=== PATIENT | female | born 1965 | race Caucasian/White ===

== ENCOUNTER 2017-04-07 05:00 | Inpatient (IN) | payer OTHER ==
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
--- NOTE | ~2017-04-07 | PN ---
Unit #: [id number] #: [id number] Patient: PRIYA YEUNG [id number] [facility] [address] [place] [address] [id number] I MR#: [id number] NAME: PRIYA YEUNG. ROOM: P123 Age: 51 Sex: F Admission Date: 04/07/2017 : 1965 Attending Physician: Cornelius Hinds M.D. Admitting Physician: Cornelius Hinds M.D. Primary Care Physician: Generic Doctor Not In System [facility] PROGRESS NOTES DATE 04/13/2017 DISCUSSION Priya continues to remain on one-to-one precautions due to aggression toward other patients including a specific peer. She is compliant with medications and shows no sedation or other adverse side effects. There is no evidence of EPS. She is alert and oriented to person and location. Memory and concentration are fair and she continues to scratch herself on a frequent basis and requires one-to-one to prevent harm to self and others. ASSESSMENT schizophrenia paranoid type. PLAN Continue current treatment plan and one-to-one precautions. Dictated by... Sofy Young/robert TD: 04/22/2017 22:20 JOB #: [id number] [facility] PROGRESS NOTES Page 1 of 1 X Cornelius Hinds MD PROGRESS NOTE
--- NOTE | ~2017-04-07 | PN ---
Unit #: [id number] #: [id number] Patient: CURRY YEUNG [id number] [facility] [address] [place] [address] [id number] Yulia MR#: [id number] NAME: CURRY YEUNG. ROOM: P123 Age: 51 Sex: F Admission Date: 04/07/2017 : 1965 Attending Physician: Cornelius Hinds M.D. Admitting Physician: Cornelius Hinds M.D. Primary Care Physician: Devorah Doctor Not In System [facility] PROGRESS NOTES DATE 04/20/2017 DISCUSSION Upon today's assessment, I spoke with nursing staff regarding her discontinuation of the one-to-one yesterday and the report that her behaviors have been good and she has no issues at this time and has been pleasant with staff. Upon speaking to the patient, she reports that she has been feeling okay and she reports that she is off the one-to-one and she is happy with that but has had complaints of a headache for most of the day. She does still endorse auditory hallucinations that are not command in nature but are softer at this time and more tolerable. Mental status exam at this time reveals a casually dressed woman who is mildly disheveled, lying in bed with fair personal hygiene. She is oriented to person, place, and situation. Her mood is constricted at this time with a congruent affect. Her speech is relevant, coherent with a normal rate and tone. Her thought processes appear logical and goal directed. She denies any suicidal or homicidal ideation at this time. She denies visual hallucinations but endorses auditory hallucinations that are not command in nature. Memory, intellectual functioning appear grossly intact. Judgment and insight are limited. Sleep and appetite she reports as adequate and denies any side effects to the medications. We will continue to monitor Ms. Powers q.15 minutes for safety and provide comfort medications as needed. Dictated by... Yumi Lynn APRN for Cornelius Hinds M.D. GABRIELLE/jessica TD: 04/21/2017 15:53 JOB #: [id number] Unit #: [id number] #: [id number] Patient: CURRY YEUNG [facility] PROGRESS NOTES Page 1 of 1 X YUMI LYNN
--- NOTE | ~2017-04-07 | CR142 ---
[facility] A Service of [facility] & [facility] RADIOLOGY TEXT RESULTS PATIENT: CURRY YEUNG LOCATION: P1S P123-1 : [birth year] UNIT #: [id number] AGE: [address]: Cornelius Hinds MD SEX: F ORDER DR: [id number] [facility] [address] [facility]. [place], [place] [address] [id number] I MR#: [id number] Acc #: [id number] NAME: CURRY YEUNG. : 1965 SEX: F STUDY DATE/TIME: 04/11/2017 15:56 UNIT: [facility] ROOM: [facility] STUDY DESCRIPTION: CR Hand Min 3 Views Rt Attending Physician: Cornelius Hinds M.D. Ordering Physician: Cornelius Hinds M.D. MEDICAL IMAGING REPORT This report is preliminary unless electronic signature is present EXAM Three views right hand 04/11/2017 HISTORY Right fifth metacarpal pain and wrist pain. Punched a wall today. Bruising. COMPARISON None. FINDINGS No acute displaced fractures identified. No retained radiopaque foreign body is seen. No joint dislocation is evident. There are mild generalized osteoarthritic changes of the hand and wrist, predominately manifest as mild joint space narrowing. IMPRESSION No acute abnormality right hand. Mild osteoarthritic changes. Dictated by... Selena Casas M.D. THIS IS AN ELECTRONICALLY VERIFIED REPORT Selena Casas M.D. at 04/15/2017 8:40 AM LLH/pcl TD: 04/11/2017 22:18 JOB #: [id number] MEDICAL IMAGING REPORT Page 1 of 1 COPY
--- NOTE | ~2017-04-07 | PN ---
Unit #: [id number] #: [id number] Patient: PRIYA YEUNG [id number] [facility] [address] [place] [address] [id number] I MR#: [id number] NAME: PRIYA YEUNG. ROOM: P123 Age: 51 Sex: F Admission Date: 04/07/2017 : 1965 Attending Physician: Cornelius Hinds M.D. Admitting Physician: Cornelius Hinds M.D. Primary Care Physician: Generic Doctor Not In System [facility] PROGRESS NOTES DATE OF SERVICE: 04/10/2017 DISCUSSION Priya continues to be easily agitated and remains on one-to-one at all times due to her frequent episodes of self-harm. She is compliant with medications, but still appears psychotic, disorganized, and responsive to internal stimuli. Her dress and grooming are extremely disheveled and she is uncooperative with staff recommendations. ASSESSMENT Schizoaffective disorder. PLAN Continue one-to-one precautions and current treatment plan. Dictated by... Sofy Young/david TD: 04/11/2017 12:55 JOB #: [id number] [facility] PROGRESS NOTES Page 1 of 1 X Cornelius Hinds MD PROGRESS NOTE
--- NOTE | ~2017-04-07 | PN ---
Unit #: [id number] #: [id number] Patient: PRIYA YEUNG [id number] [facility] [address] [place] [address] [id number] I MR#: [id number] NAME: PRIYA YEUNG. ROOM: P123 Age: 51 Sex: F Admission Date: 04/07/2017 : 1965 Attending Physician: Cornelius Hinds M.D. Admitting Physician: Cornelius Hinds M.D. Primary Care Physician: Generic Doctor Not In System [facility] PROGRESS NOTES DATE OF SERVICE 04/17/2017 DISCUSSION Priya continues to have episodes of aggression, especially toward a peer who is particularly adept at annoying her. She remains on one-to-one precautions. She is compliant with medications and her grooming has improved a little bit. She is alert and fully oriented. She continues to be paranoid with some psychosis and cannot contract for safety for self or others ASSESSMENT Schizophrenia paranoid type. PLAN Continue current treatment plan Dictated by... Cornelius Hinds M.D. TELMA/robert TD: 04/22/2017 21:11 JOB #: [id number] [facility] PROGRESS NOTES Page 1 of 1 X Cornelius Hinds MD PROGRESS NOTE
--- NOTE | ~2017-04-07 | PN ---
Unit #: [id number] #: [id number] Patient: CURRY YEUNG [id number] [facility] [address] [place] [address] [id number] I MR#: [id number] NAME: CURRY YEUNG. ROOM: P123 Age: 51 Sex: F Admission Date: 04/07/2017 : 1965 Attending Physician: Cornelius Hinds M.D. Admitting Physician: Cornelius Hinds M.D. Primary Care Physician: Generic Doctor Not In System [facility] PROGRESS NOTES DATE OF SERVICE: 04/14/2017 DISCUSSION Josué continues to require occasional intramuscular medication. She is alert and fully oriented today. Her memory and concentration are fair to poor and her thought processes remained stilted with active psychosis. ASSESSMENT Schizophrenia, paranoid type. PLAN Continue current treatment plan, using IM whenever necessary to protect the patient from harm. Dictated by... Sofy YoungH/david TD: 04/22/2017 04:57 JOB #: [id number] [facility] PROGRESS NOTES Page 1 of 1 X Cornelius Hinds MD X PROGRESS NOTE
--- NOTE | ~2017-04-07 | PN ---
Unit #: [id number] #: [id number] Patient: PRIYA YEUNG [id number] [facility] [address] [place] [address] [id number] I MR#: [id number] NAME: PRIYA YEUNG. ROOM: P123 Age: 51 Sex: F Admission Date: 04/07/2017 : 1965 Attending Physician: Cornelius Hinds M.D. Admitting Physician: Cornelius Hinds M.D. Primary Care Physician: Generic Doctor Not In System [facility] PROGRESS NOTES DATE OF SERVICE 04/16/2017 DISCUSSION Priya continues to have aggression and is easily agitated by psychotic peers. She is compliant with medications and shows no adverse side effects at this point she is alert and fully oriented. Her memory and concentration are fair. Her thought processes remain psychotic. After striking the wall the other day her hand x-ray showed no abnormalities or fractures. ASSESSMETN Schizophrenia paranoid type. PLAN Continue current treat plan and one-to-one precautions. Dictated by... Sofy Young/robert TD: 04/22/2017 21:25 JOB #: [id number] [facility] PROGRESS NOTES Page 1 of 1 X Cornelius Hinds MD PROGRESS NOTE
--- NOTE | ~2017-04-07 | PN ---
Unit #: [id number] #: [id number] Patient: CURRY YEUNG [id number] [facility] [address] [place] [address] [id number] I MR#: [id number] NAME: CURRY YEUNG. ROOM: P123 Age: 51 Sex: F Admission Date: 04/07/2017 : 1965 Attending Physician: Cornelius Hinds M.D. Admitting Physician: Cornelius Hinds M.D. Primary Care Physician: Generic Doctor Not In System [facility] PROGRESS NOTES DATE OF SERVICE: 04/15/2017 DISCUSSION Tanika continues to require seclusion and restraint and was in seclusion this morning when I arrived on the unit due to her aggression toward a peer. She is alert and oriented to person and location. Memory and concentration are poor, and her thought processes continued to be psychotic and paranoid. ASSESSMENT Schizophrenia, paranoid type. PLAN Continue current treatment plan. Dictated by... Sofy Young/david TD: 04/22/2017 02:44 JOB #: [id number] [facility] PROGRESS NOTES Page 1 of 1 X Cornelius Hinds MD X PROGRESS NOTE
--- NOTE | ~2017-04-07 | PN ---
Unit #: [id number] #: [id number] Patient: PRIYA YEUNG [id number] [facility] [address] [place] [address] [id number] I MR#: [id number] NAME: PRIYA YEUNG. ROOM: P123 Age: 51 Sex: F Admission Date: 04/07/2017 : 1965 Attending Physician: Cornelius Hinds M.D. Admitting Physician: Cornelius Hinds M.D. Primary Care Physician: Generic Doctor Not In System [facility] PROGRESS NOTES DATE 04/21/2017 DISCUSSION Priya is lying in her bed today complaining of a migraine headache. Our medical records secretary has ordered Imitrex for this. She continues to be irritable in her mood and continues to engage in occasional self-harm behavior, although she is not on one-to-one at this time and appears slightly improved. Her psychosis continues to be problematic and she continues to be paranoid and aggressive at times. I have been informed by pharmacy that her Invega Trinza injection will not be available until Friday of this week. ASSESSMENT Schizophrenia, paranoid type. PLAN Continue current treatment plan. Dictated by... Cornelius Hinds M.D. [facility]/nasrin TD: 04/22/2017 22:25 JOB #: [id number] [facility] PROGRESS NOTES Page 1 of 1 X Cornelius Hinds MD X PROGRESS NOTE
--- NOTE | ~2017-04-07 | DS ---
Unit #: [id number] #: [id number] Patient: PRIYA YEUNG [id number] [place] [address] [id number] I MR#: [id number] NAME: PRIYA YEUNG. ROOM: [facility] Age: 51 Sex: F Admission Date: 04/07/2017 : 1965 Discharge Date: 04/23/2017 Attending Physician: Cornelius Hinds M.D. Primary Care Physician: Generic Doctor Not In System DISCHARGE SUMMARY REASON FOR ADMISSION Priya is a 51-year-old woman with a long history of schizoaffective disorder, who apparently has been noncompliant compliant. The patient reports she was hearing voices, seeing spiders, and was self-harming by head banging and attempting to cut herself. She was readmitted for psychosis. DIAGNOSTIC STUDIES LABORATORY RESULTS: Please see hospital chart. HOSPITAL COURSE The patient was admitted on one-to-one precautions, and was restarted on intramuscular medications due to her extreme agitation. Thorazine and other home medications were restarted and the patient continued to be on one-to-one precautions due to not only attempting to harm herself, but attempting to harm staff members including her one-to-one provider. She had no adverse side effects from her medications, and gradually her psychosis improved with the occasional use of seclusion and restraint or intramuscular medications due to the patient's significant self-harming behaviors. Eventually, she was able to calm and participate more appropriately in unit groups and activities, at which time she began to agitate for discharge. She was scheduled to receive her Invega Trinza every 3 month injection and this was administered in our [facility] on the date of discharge. DISCHARGE DIAGNOSES AXIS I: Schizoaffective disorder, bipolar type. AXIS II: No diagnosis. AXIS III: Hypertension, gastroesophageal reflux disease, history of cerebrovascular accident. AXIS IV: AXIS V: DISCHARGE INSTRUCTIONS [facility] DISCHARGE MEDICATIONS Invega Trinza 819 mg every 3 months, the next due in 07/2017; Thorazine 200 mg t.i.d. for psychosis; trazodone 100 mg at bedtime for insomnia. Primary care medicines were continued unchanged. CONDITION AT DISCHARGE Unit #: [id number] #: [id number] Patient: PRIYA YEUNG A Fair. PROGNOSIS Fair. DIET AND ACTIVITY Per primary care doctor. Dictated by... Sofy Young/david TD: 05/30/2017 04:37 JOB #: [id number] DISCHARGE SUMMARY Page 1 of 1 X Cornelius Hinds MD X DISCHARGE SUMMARY
--- NOTE | ~2017-04-07 | HP ---
Unit #: [id number] #: [id number] Patient: PRIYA YEUNG [id number] [place] [address] [id number] I MR#: [id number] NAME: PRIYA YEUNG. ROOM: P123 Age: 51 Sex: F Admission Date: 04/07/2017 : 1965 Attending Physician: Cornelius Hinds M.D. Admitting Physician: Cornelius Hinds M.D. Primary Care Physician: Generic Doctor Not In System HISTORY AND PHYSICAL HISTORY OF PRESENT ILLNESS Priya is a 51 year old admitted to [address] [place] [address] with psychotic behavior. She is a poor historian so her history is taken from her chart. PAST MEDICAL HISTORY 1. Morbid obesity. 2. High blood pressure. 3. GERD. 4. Hyperlipidemia. 5. COPD. 6. Degenerative disc disease. a. Chronic back pain. PAST SURGICAL HISTORY 1. Hysterectomy. 2. Cholecystectomy. 3. D and C. 4. Ocular surgery. ALLERGIES Zofran. SOCIAL HISTORY She denies cigarettes, alcohol and illicit drug use. FAMILY HISTORY Medically noncontributory. REVIEW OF SYSTEMS She does not answer questions appropriately. There are no reports of nausea, vomiting or diarrhea. She has had no cough or increased temperature. CURRENT MEDICATIONS 1. Zestril 20 mg daily. 2. Claritin 10 mg daily. 3. Mobic 15 mg daily. 4. Protonix 40 mg daily. 5. Fish oil 1000 mg daily. 6. Desyrel 100 mg q.h.s. 7. Lipitor 20 mg q.h.s. 8. Colace 100 mg b.i.d. 9. Thorazine 200 mg t.i.d. Unit #: [id number] #: [id number] Patient: PRIYA YEUNG 10. Milk of Magnesia p.r.n. 11. Maalox p.r.n. 12. Tylenol p.r.n. PHYSICAL EXAMINATION GENERAL: Alert, obese, appearing much older than her stated age of 51, in no apparent distress. VITAL SIGNS: Blood pressure 140/92, heart rate 70, respirations 16, temperature 98.6. WEIGHT: 216. HEIGHT: 5 feet 3 inches. SKIN: Warm and dry without rash or lesion. HEENT: Normocephalic. TMs not viewed. Oral and nasal passages clear. Conjunctivae clear. PERRLA. EOMs intact. NECK: Supple without lymphadenopathy or thyromegaly. HEART: Regular rate and rhythm without murmur. LUNGS: Clear. ABDOMEN: Soft, nontender. : Not done. EXTREMITIES: No evidence of cyanosis, clubbing or edema. Moves all without focal deficit. NEUROLOGICAL: Unable to complete extended exam. She does move all extremities without focal deficit. Hand semiconductor manufacturing technician is equal and gait is normal. IMPRESSION Psychiatric admission. RECOMMENDATIONS PSYCHIATRIC: Per psychiatrist. MEDICAL: See no contraindications to participate in facility's activities. MEDICAL PROGNOSIS Good. MEDICAL CONDITION Stable. Dictated by... Cally Wallace P.A.-C. for Sofy Dumont/nasrin TD: 04/08/2017 16:27 JOB #: [id number] Unit #: [id number] #: [id number] Patient: PRIYA YEUNG Yogesh HISTORY AND PHYSICAL Page 1 of 1 X Cally Wallace HISTORY AND PHYSICAL
--- NOTE | ~2017-04-07 | PN ---
Unit #: [id number] #: [id number] Patient: CURRY YEUNG [id number] [facility] [address] [place] [address] [id number] Yulia MR#: [id number] NAME: CURRY YEUNG. ROOM: P123 Age: 51 Sex: F Admission Date: 04/07/2017 : 1965 Attending Physician: Cornelius Hinds M.D. Admitting Physician: Cornelius Hinds M.D. Primary Care Physician: Devorah Doctor Not In System [facility] PROGRESS NOTES DATE 04/19/2017 DISCUSSION Upon today's assessment, the patient reports "I am okay." She is on a one-to-one at this time per nursing staff and they report that at this time she is much improved and close to baseline as far as her psychosis and unpredictability. She reports that she does still have auditory hallucinations. She says "I hear them, but they are not as loud as when I first came in." She said that they are much softer now and she can handle him, but before admission they were really loud and that was the cause of a lot of her issues of acting out. Mental status at this time reveals a female who is casually dressed, disheveled with poor personal hygiene. Her mood was constricted with a congruent affect. Her speech was relevant, coherent with a normal rate and tone. Her thought process appeared logical at this time. She was able to describe to me how the voices had resolved throughout her hospital course and gotten softer and not as loud which she reports is an improvement. She denies any suicidal or homicidal ideation at this time. She does report auditory hallucinations which are not command in nature. Her memory and intellectual functioning appear to be grossly intact. Judgment and insight are limited. She reports adequate sleep and appetite and denies any side effects to the medications. At this time, we will discontinue the one-to-one and continue to monitor the patient closely and continue to monitor q.15 minutes for safety. Dictated by... Yumi Lynn APRN for Sofy Young/jessica TD: 04/21/2017 15:38 JOB #: [id number] Unit #: [id number] #: [id number] Patient: CURRY YEUNG PROGRESS NOTES Page 1 of 1 X YUMI LYNN PROGRESS NOTE
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
== END 2017-04-23 11:04 | disposition home or self-care (01) | DRG 885 ==
LOC: POF 09:39 → P1S 09:39
DX: F31.9 Bipolar disorder, unspecified (principal); F90.9 Attention-deficit hyperactivity disorder, unspecified type
CPT/HCPCS: 73130; 82947; J2060; J3486